=== PATIENT | male | born 1960 | race Caucasian/White ===

== ENCOUNTER 2019-07-16 21:26 | Emergency (ER) | payer MEDICAID, OTHER ==
[~2019-07-16] VITALS: Ht 170.2 cm; Wt 113.4 kg
[2019-07-16] MEDS ORDERED: Haloperidol 5mg/ml Inj IM ONE (21:30)
[2019-07-16] MEDS ORDERED: LORazepam Inj 2mg/ml 1ml IV ONE (21:30)
--- NOTE | 2019-07-16 21:31 | Emergency Room Report ---
History of Present Illness General Chief Complaint: Behavioral Complaint Source: Patient, Medical Record, EMS, Law Enforcement Present Illness HPI This is a 59-year-old male long-term patient with a history of diabetes and psych history. He presents with chief complaint of agitation. senior living called 911 because he was agitated and was throwing being around. He was given a salad for dinner and he did not like to it. He threw the food away. He went to the shower and then was yelling and throwing things. Nursing staff called 911. Police then called EMS and patient had to be restrained and brought here. He was spitting on route per EMS. Patient is not cooperative. He was yelling profanity here. Then he stopped talking. There is no trauma. No medication was given. Allergies: Coded Allergies: DIPHENHYDRAMINE (Verified Allergy, Unknown, 07/16/19) Patient History Past Medical History: see triage record, old chart reviewed, DM, psych hx Past Surgical History: other Pertinent Family History: none Social History: Denies: smoking Immunizations: other Reviewed Nursing Documentation: PMH: Agreed; PSxH: Agreed Review of Systems All Other Systems: limited - patient is not cooperating Physical Exam Vital Signs Date Time Temp Pulse Resp B/P (MAP) Pulse Ox O2 Delivery O2 Flow Rate FiO2 07/16/19 21:19 99.0 101 19 169/81 (110) 100 Vitals with high blood pressure Sp02 EP Interpretation: reviewed, normal General Appearance: well appearing, no apparent distress, alert Head: normocephalic, atraumatic Eyes: bilateral eye PERRL, bilateral eye EOMI ENT: hearing grossly normal, normal pharynx Neck: full range of motion, supple, no meningismus Respiratory: chest non-tender, lungs clear, normal breath sounds Cardiovascular #1: regular rate, rhythm, no murmur Gastrointestinal: normal bowel sounds, non tender, no mass, no organomegaly, no bruit, non-distended Musculoskeletal: back normal, normal range of motion Neurologic: normal inspection, no focal defects Psychiatric: other - Agitated Medical Decision Making Diagnostic Impression: Primary Impression: Agitation Additional Impressions: ARF (acute renal failure) Qualified Codes: N17.9 - Acute kidney failure, unspecified Anemia Qualified Codes: D64.9 - Anemia, unspecified Proteinuria Qualified Codes: R80.9 - Proteinuria, unspecified ER Course Patient presents with agitation. He does have a psych history. He is calm and cooperative now after dose of Haldol and Ativan. Because of his abnormal kidney function, will give IV fluid in admit versus transfer based on his insurance. Unknown baseline. I discussed the case with physical graduate assistant Js who accept the patient for transfer to [facility]. Patient is stable for transfer. Last Vital Signs Date Time Temp Pulse Resp B/P (MAP) Pulse Ox O2 Delivery O2 Flow Rate FiO2 07/16/19 21:19 99.0 101 19 169/81 (110) 100 Status: improved Disposition: XFER SHT-TRM HOSP Condition: Stable Slava Smith MD Jul 16, 2019 21:31
[2019-07-16] MEDS ORDERED: LISINOPRIL5 MG ORAL (21:43)
[2019-07-16] MEDS ORDERED: IBUPROFEN600 MG ORAL (21:43)
[2019-07-16] MEDS ORDERED: LEXAPRO5 MG ORAL (21:43)
[2019-07-16] MEDS ORDERED: MULTI-VITAMIN1 EACH PO (21:43)
[2019-07-16] MEDS ORDERED: FOLIC ACID1 MG ORAL (21:43)
[2019-07-16] MEDS ORDERED: FISH OIL 500 M1 EAC1 PO (21:43)
[2019-07-16] MEDS ORDERED: SEROQUEL50 MG ORAL (21:43)
[2019-07-16] MEDS ORDERED: LANTUS SOL100 UNIT/1 SUBQ (21:43)
[2019-07-16] MEDS ORDERED: FEOSOL1 TAB ORAL (21:43)
[2019-07-16] MEDS ORDERED: HUMULIN R100 UNIT/1 SUBQ ×2 (21:43)
[2019-07-16] MEDS ORDERED: VITAMIN E400 UNI5 PO (21:43)
[2019-07-16] MEDS ORDERED: NEURONTIN300 MG ORAL (21:43)
[2019-07-16] MEDS ORDERED: VITAMIN C500 M1 ORAL (21:43)
[2019-07-16] MEDS ORDERED: HYDROXYZINE HCL25 M1 PO (21:43)
[2019-07-16] MEDS ORDERED: OMEPRAZOLE20 M3 ORAL (21:43)
[2019-07-16] MEDS ORDERED: TUMS500 MG ORAL (21:43)
[2019-07-16] MEDS ORDERED: GLIPIZIDE10 MG PO (21:43)
[2019-07-16] MEDS ORDERED: ACETAMINOPHEN325 M1 ORAL (21:43)
[2019-07-16] MEDS ORDERED: OMEGA-31000 M1 PO (21:43)
[2019-07-16] MEDS ORDERED: MINOCYCLINE HC100 MG PO (21:43)
[2019-07-16] MEDS ORDERED: CHOLINE FENOFIBRATE PO (21:43)
[2019-07-16 21:57] VITALS: BP 169/81
[2019-07-16 22:39] LABS: BASOPHILS % (AUTO) 1.1 % (0.0-2.0); EOSINOPHILS % (AUTO) 2.1 % (0.0-3.0); HEMATOCRIT 33.7 % (42.0-52.0); HEMOGLOBIN 11.2 G/DL (14.2-18.0); MEAN CORPUSCULAR VOLUME 88 FL (80-99); NEUTROPHILS % (AUTO) 68.8 % (45.0-75.0); PLATELET COUNT 138 K/UL (150-450); RED BLOOD COUNT 3.82 M/UL (4.70-6.10); RED CELL DISTRIBUTION WIDTH 12.2 % (11.6-14.8); WHITE BLOOD COUNT 7.8 K/UL (4.8-10.8)
[2019-07-16 22:41] LABS: APPEARANCE,URINE CLEAR; BILIRUBIN, URINE NEGATIVE (NEGATIVE); COLOR,URINE PALE YELLOW; GLUCOSE, URINE (UA) 2+ (NEGATIVE); KETONES,URINE NEGATIVE (NEGATIVE); LEUKOCYTE ESTERASE ,URINE NEGATIVE (NEGATIVE); NITRITE,URINE NEGATIVE (NEGATIVE); PH,URINE 5 (4.5-8.0); PROTEIN,URINE 3+ (NEGATIVE); UROBILINOGEN,URINE NORMAL MG/DL (0.0-1.0)
[2019-07-16 22:45] VITALS: BP 142/57
[2019-07-16 22:52] LABS: ANION GAP 3 mmol/L (5-15); BLOOD UREA NITROGEN 76 mg/dL (7-18); CALCIUM 9.1 MG/DL (8.5-10.1); CARBON DIOXIDE 28 MMOL/L (21-32); CHLORIDE 103 MMOL/L (98-107); POTASSIUM 5.1 MMOL/L (3.5-5.1); SODIUM 134 MMOL/L (136-145)
[2019-07-17 00:28] VITALS: BP 155/84
[2019-07-17 02:04] VITALS: BP 139/71
[2019-07-17 03:45] VITALS: BP 139/71
== END 2019-07-17 03:45 | disposition short-term general hospital (02) ==
LOC: EDBD 21:26 → EMR 21:35
DX: R45.1 Restlessness and agitation (principal); N17.9 Acute kidney failure, unspecified; D64.9 Anemia, unspecified; R80.9 Proteinuria, unspecified; Z88.8 Allergy status to other drugs, medicaments and biological substances; E11.9 Type 2 diabetes mellitus without complications
CPT/HCPCS: 36415; 80048; 81001; 85025; 87081; 96361; 96372; 96374; J1630; Z7502; 99284